=== PATIENT | male | born 1980 | race American Indian/Alaskan Native ===

== ENCOUNTER 2019-05-28 03:26 | Inpatient (IN) | payer SELFPAY ==
[2019-05-28] MEDS ORDERED: ASPIRIN 325 MG TAB PO ONE (03:37)
[2019-05-28 04:19] LABS: BUN/Creatinine Ratio 12; Blood Urea Nitrogen 17 mg/dL (9-20); Calcium 8.7 mg/dL (8.4-10.2); Hemolysis Index 3
--- NOTE | 2019-05-28 04:22 | XRay Report ---
CHEST 1 VIEW INDICATION / CLINICAL INFORMATION: Chest Pain. COMPARISON: Chest radiograph 05/11/2019 FINDINGS: SUPPORT DEVICES: None. HEART / MEDIASTINUM: Heart size is normal. Prior median sternotomy. LUNGS / PLEURA: No significant pulmonary or pleural abnormality. No pneumothorax. ADDITIONAL FINDINGS: No significant additional findings. IMPRESSION: 1. No acute findings. Signer Name: Huma Michaels MD Signed: 05/28/2019 4:17 AM Workstation Name: [employer] [id number]
[2019-05-28] MEDS ORDERED: NITROGLYCERIN 0.4 MG TAB SUBL SL ONE (04:24)
--- NOTE | 2019-05-28 04:28 | Emergency Department Report ---
ED Chest Pain HPI - General Chief Complaint: Chest Pain Stated Complaint: CP Time Seen by Provider: 05/28/19 03:48 Source: patient Mode of arrival: Ambulatory Limitations: No Limitations - History of Present Illness Initial Comments: 38-year-old -English male presents to the emergency department with complaint of some left-sided chest pain with radiation to the left shoulder and arm that started about one hour prior to presentation. He denies any nausea, vomiting, fever, back pain, shortness of breath or diaphoresis. He took his normal home medications but did not take anything else extraocular ordered to try and treat his symptoms prior to presentation. He has a past medical history of gyi-wrmmwsu-rxutldwyz diabetes, coronary artery disease with previous CABG, hypertension, seizures. He is on warfarin for anticoagulation. 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 He denies any tobacco or illicit drug use. No recent travel or sick contacts at home. Severity scale (0 -10): 8 - Related Data Allergies Allergy/AdvReac Type Severity Reaction Status Date / Time No Known Allergies Allergy Verified 05/11/19 16:29 Heart Score - HEART Score History: Moderately suspicious EKG: Non-specific Age: < 45 Risk factors: > 3 risk factors or hx of atherosclerotic disease Troponin: < normal limit HEART Score: 4 - Critical Actions Critical Actions: 4-6 pts:12-16.6% risk of adverse cardiac event. Should be admitted ED Review of Systems ROS: Stated complaint: CP Other details as noted in HPI Comment: All other systems reviewed and negative Constitutional: denies: chills, fever Eyes: denies: eye pain, vision change ENT: denies: ear pain, throat pain Respiratory: denies: cough, shortness of breath Cardiovascular: chest pain. denies: palpitations, edema Gastrointestinal: denies: abdominal pain, vomiting Genitourinary: denies: dysuria, discharge Musculoskeletal: arthralgia, myalgia Skin: denies: rash, lesions Neurological: denies: headache, weakness ED Past Medical Hx - Past Medical History Previous Medical History?: Yes Hx Hypertension: Yes Hx Heart Attack/AMI: Yes Hx Diabetes: Yes Hx Seizures: Yes - Surgical History Past Surgical History?: Yes Hx Open Heart Surgery: Yes (x 2) - Social History Smoking Status: Never Smoker Substance Use Type: None ED Physical Exam - General Limitations: No Limitations - Other Other exam information: GENERAL: The patient is well-developed well-nourished. HENT: Normocephalic. Atraumatic. Patient has moist mucous membranes. EYES: Extraocular motions are intact. NECK: Supple. Trachea is midline. CHEST/LUNGS: Clear to auscultation. There is no respiratory distress noted. HEART/CARDIOVASCULAR: Regular. There is no tachycardia. There is no murmur. ABDOMEN: Abdomen is soft, nontender. Patient has normal bowel sounds. There is no abdominal distention. SKIN: Skin is warm and dry. NEURO: The patient is awake, alert, and oriented. The patient is cooperative. The patient has no focal neurologic deficits. Normal speech. MUSCULOSKELETAL: There is no tenderness or deformity. There is no evidence of acute injury. ED Course Vital Signs 05/28/19 05/28/19 05/28/19 03:30 04:06 04:31 Temperature 98.0 F 98.3 F Pulse Rate 80 68 70 Respiratory 18 13 19 Rate Blood Pressure 135/93 124/85 Blood Pressure 124/85 [Left] O2 Sat by Pulse 99 99 99 Oximetry ZIA score - Zia Score Age > 65: (0) No Aspirin use within the Past 7 Days: (1) Yes 3 or more CAD Risk Factors: (1) Yes 2 or more Angina events in past 24 hrs: (1) Yes Known CAD with more than 50% Stenosis: (1) Yes Elevated Cardiac Markers: (0) No ST Deviation Greater than 0.5mm: (0) No ZIA Score: 4 ED Medical Decision Making - Lab Data Result diagrams: 05/28/19 03:44 05/28/19 03:44 - EKG Data -: EKG Interpreted by Me EKG shows normal: sinus rhythm, axis, intervals, QRS complexes (RBBB, LPFB, q waves to inferior leads), ST-T waves Rate: normal - EKG Data When compared to previous EKG there are: no significant change Interpretation: unchanged when compared t (05/11/19) - Radiology Data Radiology results: image reviewed interpreted by me: Chest x-ray does not show any acute process. There are no pleural effusions, obvious pneumonia and there is no pneumothorax. - Medical Decision Making Patient presents with some acute left-sided chest pain with radiation down the left arm. He has a history of coronary artery disease with previous bypass surgery 2. EKG shows right bundle branch block and left posterior fascicular block but no signs of ST elevation ME and it is unchanged from previous EKG one month ago. First troponin negative. He is therapeutic on his warfarin. D- dimer negative. Chest x-ray does not show any pleural effusions, pneumothorax, pneumonia, focal consolidation, or any other acute process. He was given a sublingual nitroglycerin which did not improve his pain. He has a moderate heart and ZIA score. For these reasons the patient will be admitted to the hospital for further evaluation and treatment and was accepted for admission by the hospitalist, Dr. Turk. - Differential Diagnosis ME, PE, Pneumonia, Costochondritis Critical Care Time: No Critical care attestation.: If time is entered above; I have spent that time in minutes in the direct care of this critically ill patient, excluding procedure time. ED Disposition Clinical Impression: Acute chest pain, History of coronary artery disease Disposition: DC-01 TO HOME OR SELFCARE Is pt being admited?: No Condition: Stable Instructions: Chest Pain (ED) Referrals: PRIMARY CAREMD [Primary Care Provider] - 3-5 Days Time of Disposition: 05:31
[2019-05-28 04:43] LABS: Basophils % (Auto) 0.4 % (0.0-1.8); Eosinophils # (Auto) 0.1 K/mm3 (0.0-0.4); Eosinophils % (Auto) 1.8 % (0.0-4.3); Hematocrit 39.1 % (35.5-45.6); Hemoglobin 12.6 gm/dl (11.8-15.2); Lymphocytes # (Auto) 2.7 K/mm3 (1.2-5.4); Lymphocytes % (Auto) 42.6 % (13.4-35.0); Mean Corpuscular HGB Conc 32 % (32-34); Mean Corpuscular Volume 79 fl (84-94); Monocytes # (Auto) 0.4 K/mm3 (0.0-0.8); Monocytes % (Auto) 6.3 % (0.0-7.3); Platelet Count 272 K/mm3 (140-440); Red Blood Count 4.95 M/mm3 (3.65-5.03); Red Cell Distribution Width 18.9 % (13.2-15.2)
[2019-05-28 04:58] LABS: INR 2.39 (0.87-1.13)
[2019-05-28 04:59] LABS: Partial Thromboplastin Time 34.7 Sec. (24.2-36.6)
[2019-05-28] MEDS ORDERED: MORPHINE 4 MG/1 ML INJ IV ONE (05:26)
[2019-05-28] MEDS ORDERED: SODIUM CHLORIDE 0.9% 1000 ML 1,000 ML IV ONE (05:26)
[2019-05-28] MEDS ORDERED: ONDANSETRON 4 MG/2 ML INJ IV PRN (05:44)
[2019-05-28] MEDS ORDERED: ACETAMINOPHEN 325 MG TAB PO PRN (05:44)
[2019-05-28] MEDS ORDERED: oxyCODONE /ACETAMINOPHEN 5-325MG TAB PO PRN (05:44)
--- NOTE | 2019-05-28 05:49 | History and Physical Report ---
History of Present Illness Date of examination: 05/28/19 History of present illness: 38 -year-old man with a history of hypertension, diabetes, seizure, hyperlipidemia, cardiac thrombus on coumadin comes emergency room with complaints of chest pain that started today. Pain is in the left chest which she described as aching sensation, intermittent constant, intensity 5/10, no radiation , can't identify exacerbating factor. Denies nausea, vomiting, shortness breath, diaphoresis or palpitation. He had a stress test but does not remember when Review Of Systems: Constitutional: no weight loss, fever, chills Ears, eyes, nose, mouth and throat: no nasal congestion, no nasal discharge, no sinus pressure, blurry vision, diplopia Neck: No neck pain or rigidity. Cardiovascular: No palpitations Respiratory: No cough Gastrointestinal: No hematochezia, abdominal pain Genitourinary : no dysuria, frequency , hematuria Musculoskeletal: no muscle ache , joint pain Integumentary: no rash, no pruritis Neurological: no parathesias, focal weakness Endocrine: no cold or heat intolerance, no polyuria or polydipsia Hematologic/Lymphatic: no easy bruising, no easy bleeding, no gland swelling Allergic/Immunologic: no urticaria, no angioedema. PAST MEDICAL HISTORY: hypertension, diabetes, seizure, hyperlipidemia, cardiac thrombus on coumadin PAST SURGICAL HISTORY: open heart FAMILY HISTORY:hypertension, diabetes SOCIAL HISTORY: no tobacco, alcohol, drugs Medications and Allergies Allergies Allergy/AdvReac Type Severity Reaction Status Date / Time No Known Allergies Allergy Verified 05/11/19 16:29 Active Meds: Active Medications Acetaminophen (Tylenol) 650 mg PO Q4H PRN PRN Reason: Pain MILD(1-3)/Fever >100.5/GARVIN Sodium Chloride (Nacl 0.9% 1000 Ml) 1,000 mls @ 999 mls/hr IV BOLUS ONE Stop: 05/28/19 06:26 Last Admin: 05/28/19 05:38 Dose: 999 mls/hr Documented by: Ondansetron HCl (Zofran) 4 mg IV Q8H PRN PRN Reason: Nausea And Vomiting Oxycodone/Acetaminophen (Percocet 5/325) 1 tab PO Q6H PRN PRN Reason: Pain, Moderate (4-6) Sodium Chloride (Sodium Chloride Flush Syringe 10 Ml) 10 ml IV BID BARRETT Sodium Chloride (Sodium Chloride Flush Syringe 10 Ml) 10 ml IV PRN PRN PRN Reason: LINE FLUSH Exam - Physical Exam Narrative exam: General Apperance: The patient sitting in bed no acute distress HEENT: Normocephalic, atraumatic. Pupils equally round and reactive to light, extraocular movement intact, and no sclericterus or JVD or thyromegaly or nodule. Neck supple, no carotid bruit, mucous membranes moist, no exudate or erythema Heart: S1-S2, regular is rhythm Lungs: Clear to auscultation bilaterally, breathing comfortable Abdomen: Positive bowel sounds, soft, nontender, nondistended, no organomegaly Extremities: No edema cyanosis clubbing Skin: no rash, nodule, warm and dry Neuro:CN 2 -12 intact, motor/sensory intact, speech is fluent - Constitutional Vitals: Temp Pulse Resp BP Pulse Ox 98.3 F 70 16 124/85 99 05/28/19 04:06 05/28/19 04:31 05/28/19 05:41 05/28/19 04:31 05/28/19 04:31 Results - Labs CBC & Chem 7: 05/28/19 03:44 05/28/19 03:44 Labs: Abnormal lab results 05/28/19 05/28/19 Range/Units 03:44 04:03 MCV 79 L (84-94) fl MCH 25 L (28-32) pg RDW 18.9 H (13.2-15.2) % Lymph % (Auto) 42.6 H (13.4-35.0) % PT 25.6 H (12.2-14.9) Sec. INR 2.39 H (0.87-1.13) - Imaging and Cardiology EKG: image reviewed Chest x-ray: report reviewed Assessment and Plan Assessment chest pain cardiac thrombus on coumadin hypertension diabetes seizure hyperlipidemia Plan Admit to medicine Check cardiac enzymes, stress test Check fingersticks, start insulin sliding scale DVT prophalaxis
[2019-05-28] MEDS ORDERED: DEXTROSE 50% IN WATER (25GM) 50 ML SYRINGE IV PRN (06:25)
[2019-05-28 06:52] LABS: Creatine Kinase MB 4.6 ng/mL (0.0-4.0)
[2019-05-28] MEDS: INSULIN LISPRO 100 UNIT/ML SUB-Q SCH ×4 (08:45→21:50)
[2019-05-28] MEDS ORDERED: FLU VACC QUAD 2019-20 (3 YR UP)/PF 60 MCG/0.5 ML SYRINGE IM ONE (12:00)
--- NOTE | 2019-05-28 13:05 | Event Note ---
Date: 05/28/19 Patient seen and evaluated Chest pain -r/o AL protocol For stress test in AM
[2019-05-29 07:01] LABS: Eosinophils # (Auto) 0.1 K/mm3 (0.0-0.4); Eosinophils % (Auto) 2.7 % (0.0-4.3); Hematocrit 41.8 % (35.5-45.6); Hemoglobin 13.4 gm/dl (11.8-15.2); Lymphocytes # (Auto) 1.8 K/mm3 (1.2-5.4); Mean Corpuscular HGB Conc 32 % (32-34); Mean Corpuscular Volume 80 fl (84-94); Monocytes # (Auto) 0.3 K/mm3 (0.0-0.8); Monocytes % (Auto) 6.4 % (0.0-7.3); Platelet Count 244 K/mm3 (140-440); Red Blood Count 5.26 M/mm3 (3.65-5.03); Red Cell Distribution Width 18.6 % (13.2-15.2)
[2019-05-29 07:29] LABS: BUN/Creatinine Ratio 12; Blood Urea Nitrogen 14 mg/dL (9-20); Calcium 8.3 mg/dL (8.4-10.2); Hemolysis Index 19
[2019-05-29 08:07] VITALS: BP 144/99
--- NOTE | 2019-05-29 13:01 | Event Note ---
Date: 05/29/19 Patient left AMA. Was not seen by Me. Nursing staff notified me that the patient was not found in the room.
== END 2019-05-29 09:43 | disposition left against medical advice (07) | DRG 313 ==
LOC: ED 03:26 → SUATTDRO 03:26 → 4A 06:51
PROVIDERS: ADMIT Internal Medicine; ATTEND Internal Medicine
DX: R07.9 Chest pain, unspecified (principal); I10 Essential (primary) hypertension; E11.9 Type 2 diabetes mellitus without complications; I51.3 Intracardiac thrombosis, not elsewhere classified; R56.9 Unspecified convulsions; E78.5 Hyperlipidemia, unspecified; I25.10 Atherosclerotic heart disease of native coronary artery without angina pectoris; Z95.1 Presence of aortocoronary bypass graft; Z79.01 Long term (current) use of anticoagulants; Z82.49 Family history of ischemic heart disease and other diseases of the circulatory system; Z83.3 Family history of diabetes mellitus; I25.2 Old myocardial infarction
CPT/HCPCS: 36415; 71045; 80048; 82550; 82553; 82962; 84484; 85025; 85379; 85610; 85730; 90686; 93005; 93010; 96361; 96374; 96375; G0378; J2270; J7030

== ENCOUNTER 2019-07-23 05:24 | Emergency (ER) | payer SELFPAY ==
--- NOTE | 2019-07-23 05:46 | Event Note ---
ED Screening Note Date of service: 07/23/19 Time: 05:45 ED Screening Note: This initial assessment/diagnostic orders/clinical plan/treatment(s) is/are subject to change based on patients health status, clinical progression and re- assessment by fellow clinical providers in the ED. Further treatment and workup at subsequent clinical providers discretion. Patient/guardian urged not to elope from the ED as their condition may be serious if not clinically assessed and managed. Initial orders include: BMP, CBC, Dilantin level Patient is a 38-year-old male who has a history of seizures who had a seizure prior to arrival. Patient did bite his tongue and has some blood in the mouth. The patient is currently still slightly postictal but he was able to state that he missed one dose of his seizure medications. She could not initially remember which seizure medication he takes but after listing multiple medications he states he believes he takes Dilantin. Dilantin level will be checked
[2019-07-23 06:04] LABS: Basophils # (Auto) 0.1 K/mm3 (0.0-0.1); Basophils % (Auto) 1.1 % (0.0-1.8); Eosinophils # (Auto) 0.2 K/mm3 (0.0-0.4); Eosinophils % (Auto) 3.7 % (0.0-4.3); Hematocrit 42.9 % (35.5-45.6); Hemoglobin 13.7 gm/dl (11.8-15.2); Lymphocytes # (Auto) 1.5 K/mm3 (1.2-5.4); Lymphocytes % (Auto) 32.2 % (13.4-35.0); Mean Corpuscular HGB Conc 32 % (32-34); Mean Corpuscular Volume 82 fl (84-94); Monocytes # (Auto) 0.3 K/mm3 (0.0-0.8); Monocytes % (Auto) 5.8 % (0.0-7.3); Platelet Count 282 K/mm3 (140-440); Red Blood Count 5.21 M/mm3 (3.65-5.03)
[2019-07-23 06:24] LABS: Calcium 8.6 mg/dL (8.4-10.2)
--- NOTE | 2019-07-23 06:39 | Emergency Department Report ---
ED General Adult HPI - General Chief complaint: Seizure Stated complaint: SEIZURES Time Seen by Provider: 07/23/19 05:43 Source: patient, EMS ( EMS records not available at the time of chart dictation.), RN notes reviewed Mode of arrival: Stretcher Limitations: No Limitations - History of Present Illness Initial comments: This is a 38-year-old gentleman. This patient is not known to this provider previously. He doesn't remember the name of his primary care doctor. He may have a history of seizure. He takes his seizure medicine but does not know the name of the medicine. He also has a history of "blood clot in my heart." He reports taking Coumadin. The patient presents to the emergency room by EMS with probable seizure. As per the patient's girlfriend, patient was in bed and had a shaking episode. She doesn't know how long it lasted for. She indicates there was no trauma. The patient at this point in time states he is not having any pain. He does admit to recreational alcohol consumption last night. He denies recreational drug use. Currently, there is no headache, neck pain, chest pain, abdominal pain or shortness of breath. He believes that he bit his tongue. -: This morning Consistency: now resolved Improves with: none Worsens with: none - Related Data Previous Rx's Medication Instructions Recorded Last Taken Type Phenytoin [Dilantin] 100 mg PO Q8HR #90 capsule 07/23/19 Unknown Rx Allergies Allergy/AdvReac Type Severity Reaction Status Date / Time No Known Allergies Allergy Verified 05/11/19 16:29 ED Review of Systems ROS: Stated complaint: SEIZURES Other details as noted in HPI Constitutional: denies: fever Eyes: denies: eye discharge ENT: denies: congestion Respiratory: denies: wheezing Cardiovascular: denies: syncope Gastrointestinal: denies: nausea, vomiting Genitourinary: denies: dysuria Musculoskeletal: denies: myalgia Skin: denies: lesions Neurological: confusion (initially postictal confusion, now resolved) Hematological/Lymphatic: denies: easy bleeding ED Past Medical Hx - Past Medical History Hx Hypertension: Yes Hx Heart Attack/AMI: Yes Hx Diabetes: Yes Hx Seizures: Yes - Surgical History Hx Open Heart Surgery: Yes (x 2) - Social History Smoking Status: Never Smoker Substance Use Type: None - Medications Home Medications: Home Medications Medication Instructions Recorded Confirmed Last Taken Type Phenytoin [Dilantin] 100 mg PO Q8HR #90 capsule 07/23/19 Unknown Rx ED Physical Exam - General Limitations: No Limitations General appearance: alert, in no apparent distress - Head Head exam: Present: atraumatic, normocephalic - Eye Eye exam: Present: normal appearance, PERRL, EOMI, other (visual acuity intact to finger counting, color perception, and reading at a close distance). Absent: nystagmus - ENT ENT exam: Present: normal exam, normal orophraynx, mucous membranes moist, normal external ear exam - Neck Neck exam: Present: normal inspection, full ROM. Absent: tenderness, meningismus - Respiratory Respiratory exam: Present: normal lung sounds bilaterally. Absent: respiratory distress - Cardiovascular Cardiovascular Exam: Present: regular rate, normal rhythm, normal heart sounds. Absent: bradycardia, tachycardia, irregular rhythm, systolic murmur, diastolic murmur, rubs, gallop - GI/Abdominal GI/Abdominal exam: Present: soft. Absent: distended, tenderness, guarding, rebound, rigid, pulsatile mass - Rectal Rectal exam: Present: deferred - Extremities Exam Extremities exam: Present: normal inspection, full ROM, other (2+ pulses noted in the bilateral upper and lower extremities. Muscular compartments are soft. The pelvis is stable. There is no long bony tenderness.). Absent: pedal edema, joint swelling, calf tenderness - Back Exam Back exam: Present: normal inspection, full ROM. Absent: tenderness, CVA tenderness (R), CVA tenderness (L), paraspinal tenderness, vertebral tenderness - Neurological Exam Neurological exam: Present: alert, oriented X3, normal gait, other (there is no facial droop. The tongue is midline. Extraocular movements are intact bilaterally. There is 5/5 strength bilateral upper and lower extremities. Sensation is intact to light touch bilateral upper and lower extremities.). Absent: motor sensory deficit - Psychiatric Psychiatric exam: Present: anxious - Skin Skin exam: Present: warm, dry, intact, normal color. Absent: rash ED Course Vital Signs 07/23/19 07/23/19 07/23/19 01:30 05:34 05:36 Temperature 98.2 F Pulse Rate 79 77 Respiratory 11 L 18 Rate Blood Pressure 119/76 119/76 Blood Pressure 104/57 [Left] O2 Sat by Pulse 88 95 Oximetry 07/23/19 07/23/19 07/23/19 05:44 05:45 06:00 Temperature Pulse Rate 74 72 Respiratory 16 22 24 Rate Blood Pressure 101/58 98/52 Blood Pressure [Left] O2 Sat by Pulse 100 97 98 Oximetry 07/23/19 07/23/19 07/23/19 06:15 06:30 08:00 Temperature Pulse Rate 91 H 82 72 Respiratory 25 H 21 18 Rate Blood Pressure 104/57 132/79 Blood Pressure 134/70 [Left] O2 Sat by Pulse 98 100 99 Oximetry 07/23/19 09:50 Temperature Pulse Rate 70 Respiratory 18 Rate Blood Pressure Blood Pressure 128/78 [Left] O2 Sat by Pulse 99 Oximetry - Reevaluation(s) Reevaluation #1: 07/23/19 07:14 Differential diagnosis, including but not limited to: Seizure, breakthrough seizure, medication noncompliance, intracranial hemorrhage, postictal state, now resolved Assessment and plan: 38-year-old gentleman with history of seizure, on systemic anticoagulation, presenting with painless breakthrough seizure. He does not recall the name of his seizure medicines. We have asked the patient's to obtain list of his seizure medicines for reconciliation and for further recommendations. At the moment, the patient is alert and oriented, clinically sober, walking with a steady gait and has a GCS of 15. There is no midline cervical spine tenderness, there is no trauma. Screening laboratory studies so far unremarkable, phenytoin level found to be 1.5. Noncontrast CT scan of the brain obtained given presence of systemic anticoagulation and breakthrough seizure, it appears to be negative for acute findings. Patient has been observed in the ER for a few hours, without recurrent convulsive events. Reevaluation #2: 07/23/19 07:19 patient states he takes dilantin 100 mg PO TID. states he hasn't ran out of his medications states compliance Reevaluation #3: 07/23/19 07:20 Phenytoin level found to be subtherapeutic. Patient will be given IV fluids and IV phenytoin. Patient counseled to not drive or operate motor vehicles for the next 6 months. Reevaluation #4: 07/23/19 08:00 CT scan brain negative for acute disease. No convulsive events noted. ED Medical Decision Making - Lab Data Result diagrams: 07/23/19 05:49 07/23/19 05:49 Vital Signs 07/23/19 07/23/19 07/23/19 01:30 05:34 05:36 Temperature 98.2 F Pulse Rate 79 77 Respiratory 11 L 18 Rate Blood Pressure 119/76 119/76 Blood Pressure 104/57 [Left] O2 Sat by Pulse 88 95 Oximetry 07/23/19 07/23/19 07/23/19 05:44 05:45 06:00 Temperature Pulse Rate 74 72 Respiratory 16 22 24 Rate Blood Pressure 101/58 98/52 Blood Pressure [Left] O2 Sat by Pulse 100 97 98 Oximetry 07/23/19 07/23/19 06:15 06:30 Temperature Pulse Rate 91 H 82 Respiratory 25 H 21 Rate Blood Pressure 104/57 132/79 Blood Pressure [Left] O2 Sat by Pulse 98 100 Oximetry Lab Results 07/23/19 07/23/19 07/23/19 Range/Units 05:49 05:49 05:49 WBC 4.7 (4.5-11.0) K/mm3 RBC 5.21 H (3.65-5.03) M/mm3 Hgb 13.7 (11.8-15.2) gm/dl Hct 42.9 (35.5-45.6) % MCV 82 L (84-94) fl MCH 26 L (28-32) pg MCHC 32 (32-34) % RDW 19.0 H (13.2-15.2) % Plt Count 282 (140-440) K/mm3 Lymph % (Auto) 32.2 (13.4-35.0) % [place] % (Auto) 5.8 (0.0-7.3) % Eos % (Auto) 3.7 (0.0-4.3) % Baso % (Auto) 1.1 (0.0-1.8) % Lymph # 1.5 (1.2-5.4) K/mm3 [place] # 0.3 (0.0-0.8) K/mm3 Eos # 0.2 (0.0-0.4) K/mm3 Baso # 0.1 (0.0-0.1) K/mm3 Seg Neutrophils % 57.2 (40.0-70.0) % Seg Neutrophils # 2.7 (1.8-7.7) K/mm3 Sodium 137 (137-145) mmol/L Potassium 4.1 (3.6-5.0) mmol/L Chloride 103.4 (98-107) mmol/L Carbon Dioxide 19 L (22-30) mmol/L Anion Gap 19 mmol/L BUN 17 (9-20) mg/dL Creatinine 1.4 (0.8-1.5) mg/dL Estimated GFR 56 ml/min BUN/Creatinine Ratio 12 % Glucose 180 H (75-100) mg/dL Calcium 8.6 (8.4-10.2) mg/dL Total Creatine Kinase (55-170) units/L Phenytoin 1.4 L (10.0-20.0) ug/mL Plasma/Serum Alcohol (0-0.07) % 07/23/19 07/23/19 Range/Units 05:49 05:49 WBC (4.5-11.0) K/mm3 RBC (3.65-5.03) M/mm3 Hgb (11.8-15.2) gm/dl Hct (35.5-45.6) % MCV (84-94) fl MCH (28-32) pg MCHC (32-34) % RDW (13.2-15.2) % Plt Count (140-440) K/mm3 Lymph % (Auto) (13.4-35.0) % [place] % (Auto) (0.0-7.3) % Eos % (Auto) (0.0-4.3) % Baso % (Auto) (0.0-1.8) % Lymph # (1.2-5.4) K/mm3 [place] # (0.0-0.8) K/mm3 Eos # (0.0-0.4) K/mm3 Baso # (0.0-0.1) K/mm3 Seg Neutrophils % (40.0-70.0) % Seg Neutrophils # (1.8-7.7) K/mm3 Sodium (137-145) mmol/L Potassium (3.6-5.0) mmol/L Chloride (98-107) mmol/L Carbon Dioxide (22-30) mmol/L Anion Gap mmol/L BUN (9-20) mg/dL Creatinine (0.8-1.5) mg/dL Estimated GFR ml/min BUN/Creatinine Ratio % Glucose (75-100) mg/dL Calcium (8.4-10.2) mg/dL Total Creatine Kinase 292 H (55-170) units/L Phenytoin (10.0-20.0) ug/mL Plasma/Serum Alcohol < 0.01 (0-0.07) % - EKG Data -: EKG Interpreted by Me EKG shows normal: sinus rhythm Rate: normal - EKG Data 07/23/19 07:20 The EKG today is abnormal but unchanged from prior EKG. The EKG shows a sinus rhythm, with right axis deviation, there is atrial enlargement, there is a right bundle branch block, and a left posterior fascicular block, QTC is prolonged, the EKG is abnormal, it is unchanged from prior EKG from 2018. - Radiology Data Radiology results: image reviewed Critical care attestation.: If time is entered above; I have spent that time in minutes in the direct care of this critically ill patient, excluding procedure time. ED Disposition Clinical Impression: Breakthrough seizure, Subtherapeutic phenytoin level Disposition: TO HOME OR SELFCARE Is pt being admited?: No Does the pt Need Aspirin: No Condition: Stable Additional Instructions: Patient should not drive or operate motor vehicles for the next 6 months, or until cleared to do so by her primary care doctor or neurology specialist. Take the seizure medicines as directed. Recommend follow-up with a primary care doctor or neurologist within the next 2 weeks. Return to the emergency room right away with projectile vomiting, change in mental status, confusion, recurrent breakthrough seizure, or new, worsening or different symptoms not present on the initial emergency room evaluation. For the patient's convenience, some of our local neurology specialists have been listed. Patient may follow up with any of these physicians, or with his private outpatient physician. Prescriptions: Phenytoin [Dilantin] 100 mg PO Q8HR #90 capsule Referrals: RUTH SWANN MD [Staff Physician] - as needed KYLE NAVA MD [Referring] - as needed UBALDO GOINS MD [Staff Physician] - as needed [facility] [Provider Group] - as needed
--- NOTE | 2019-07-23 07:16 | Cat Scan Report ---
CT head without contrast INDICATION : Seizure. TECHNIQUE: Axial imaging performed from the skull apex through the skull base without the use of con trast. All CT examinations performed at this facility utilize dose modulation, iterative reconstruct ion or weight-based dosing, when appropriate, to reduce radiation dose to as low as reasonably achiev able. COMPARISON: None FINDINGS: No acute intracranial hemorrhage or parenchymal abnormality. Ventricles are normal in si ze and appear symmetric. Soft tissues including the orbits appear normal. No acute osseous abnorm ality. Sinuses and mastoid air cells are clear. IMPRESSION: No acute abnormality. Signer Name: Jatinder Yu MD Signed: 07/23/2019 7:11 AM Workstation Name: [id number]
[2019-07-23] MEDS ORDERED: PHENYTOIN 1,000 MG in SODIUM CHLORIDE 0.9% 250ML 250 ML IV ONE (07:18)
[2019-07-23] MEDS ORDERED: SODIUM CHLORIDE 0.9% 500 ML 500 ML IV ONE (07:18)
[2019-07-23] MEDS ORDERED: ONDANSETRON 4 MG ODT TAB PO ONE (09:46)
[2019-07-23] MEDS ORDERED: ONDANSETRON 4 MG ODT TAB ONE (09:50)
[2019-07-23 10:29] VITALS: BP 128/78
== END 2019-07-23 10:00 | disposition home or self-care (01) ==
LOC: ED 05:24
DX: R56.9 Unspecified convulsions (principal); R89.2 Abnormal level of other drugs, medicaments and biological substances in specimens from other organs, systems and tissues; I25.2 Old myocardial infarction; E11.9 Type 2 diabetes mellitus without complications
CPT/HCPCS: 36415; 70450; 80048; 80185; 82550; 85025; 93005; 93010; 96365; 99285; J1165; J7040; J7050; 80320; G0480; Q0162